=== PATIENT | male | born 1990 | race Caucasian/White ===

== ENCOUNTER 2020-08-06 11:48 | Emergency (ER) | payer OTHER ==
[2020-08-06 14:03] LABS: BASOPHIL 0.9 % (0-2); EOSINOPHIL 1.5 % (0-5); HCT 43.6 % (42.0-52.0); HGB 14.8 g/dl (13.2-18.0); LYMPHOCYTE 31.4 % (15-48); MCH 30.6 pg (25.0-31.0); MCHC 33.9 g/dL (32.0-36.0); MCV 90.3 fL (78.0-100.0); MONOCYTE 10.7 % (0-12); MPV 10.1 fL (6.0-9.5); NEUTROPHIL 55.1 % (41-80); NRBC 0; PLT 208 K/uL (150-400); RBC 4.83 M/uL (4.70-6.00); RDW 11.9 % (11.5-14.0); WBC 5.4 K/uL (4.0-10.5)
[2020-08-06 14:10] LABS: BUN/CREAT RATIO (CALC) 12.9 RATIO; CREATININE 0.93 mg/dL (0.67-1.17); POTASSIUM 4.1 mmol/L (3.5-5.1)
== END 2020-08-06 15:37 | disposition home or self-care (01) ==
LOC: FER 11:48
PROVIDERS: Nurse Practitioner Family
DX: K59.00 Constipation, unspecified (principal)
CPT/HCPCS: 36415; 74018; 80048; 85025; 87339